=== PATIENT | female | born 1985 | race Caucasian/White ===

== ENCOUNTER 2017-02-18 12:33 | Emergency (ER) | payer SELFPAY ==
[2017-02-18 14:47] VITALS: BP 130/86
--- NOTE | 2017-02-18 15:15 | ERNOTE ---
Upper Extremity HPI - General Extremities Pain Location: shoulder: right Time Seen by Provider: 02/18/17 15:02 Source: patient Exam Limitations: no limitations - Immun/Allergies/Home Medications Immunizations: IMMUNIZATION HX Immunizations Up to Date Yes History of Influenza Vaccine More Information Required Hx Pneumococcal Vaccination More Information Required Allergies/Adverse Reactions: Allergies Allergy/AdvReac Type Severity Reaction Status Date / Time amitriptyline Allergy Verified 02/18/17 12:55 diphenhydramine Allergy Verified 02/18/17 12:55 [From Benadryl] ketorolac tromethamine Allergy Verified 08/21/16 09:37 [From Toradol] naproxen Allergy Verified 08/21/16 09:37 Home Medications: HOME MEDICATIONS Ibuprofen [Motrin] 800 mg PO TID PRN #60 tab 08/21/16 [Last Taken 10/26/16 11:45 ] traMADol HCL [Ultram] 50 mg PO Q6H PRN #16 tablet 02/18/17 [Last Taken Unknown] - History of Present Illness Narrative: Patient states that she was moving boxes three days ago and felt a pop in her right shoulder.Shortly later she started to have pain in the shoulder. She is concerned as she dislocated both shoulders many years ago. She has been able to use the arm, but has a lot of pain especially at night not relieved by tylenol or ibuprofen. She would like pain medication like ultram to help her sleep at night Date (Duration): 02/15/17 Review of Systems - Review of Systems Constitutional: Absent: recent illness, fever ENT: Absent: nose congestion, sore throat Respiratory: Absent: shortness of breath, cough Cardiology: Absent: chest pain Gastrointestinal/Abdominal: Absent: nausea, vomiting, abdominal pain Genitourinary: Present: no symptoms reported Musculoskeletal: Present: See HPI Neurological: Absent: weakness, numbness - Patient's Past Medical History Patient History - Medical: Diabetes Type 2 Patient History - Cardiac/Respiratory: No pertinent hx Patient History - Cancer: No Hx of Cancer Patient History - Surgical Procedures: No surgical history Patient History - Other: None - Social History Living Situations: home Psych History: No pertinent hx Alcohol Use: none Drug Use: none - Immunizations Immunizations Up to Date: Yes Hx Pneumococcal Vaccination: More Information Required to Determine History of Influenza Vaccine: More Information Required to Determine Physical Exam - Physical Exam General Appearance: Present: wd/wn, alert, no apparent distress Neck: Present: normal inspection, nontender, supple, full range of motion Respiratory: Present: no respiratory distress, normal breath sounds, no accessory muscle use, chest nontender, lungs clear Cardiovascular/Chest: Present: regular rate, rhythm, no murmur Back Exam: Present: normal inspection, normal range of motion Extremity Exam: Present: normal inspection, normal except -, other - tenderness over anterior shoulder, pain on elevation over horizontal, full passive range of motion Neurological Exam: Present: alert, oriented, normal mood/affect, no motor/ sensory deficits Skin Exam: Present: normal color, warm/dry ED Progress - Vital Signs Patient's Vital Signs:: I have reviewed the patient's vital signs. Vital Signs: Vital Signs 02/18/17 02/18/17 12:50 14:46 Temperature 36.6 C 37.6 C H Pulse Rate 78 109 H Respiratory 16 14 Rate Blood Pressure 129/100 130/86 O2 Sat by Pulse 98 99 Oximetry - X-Ray X-Ray #1 X-Ray: shoulder - no acute bony injury Interpretation: Reviewed by me - Progress/Reassessment Chief Complaint: Shoulder Injury/Pain Departure Clinical Impression: Right shoulder strain Qualifiers: Encounter type: initial encounter Qualified Code(s): S46.911A - Strain of unspecified muscle, fascia and tendon at shoulder and upper arm level, right arm , initial encounter - Departure Disposition: Home self-care Condition: Good Instructions: Shoulder Sprain Referrals: Victor Manuel Bustillos PAC [[facility] - Prescriptions: traMADol HCL [Ultram] 50 mg PO Q6H PRN #16 tablet PRN Reason: Pain
== END 2017-02-18 15:20 | disposition home or self-care (01) ==
LOC: ER 12:33
DX: S46.911A Strain of unspecified muscle, fascia and tendon at shoulder and upper arm level, right arm, initial encounter (principal); X58.XXXA Exposure to other specified factors, initial encounter; Y93.89 Activity, other specified; Y92.9 Unspecified place or not applicable